=== PATIENT | female | born 1960 | race American Indian/Alaskan Native ===

== ENCOUNTER 2018-10-03 15:11 | Inpatient (IN) | payer MEDICAID, OTHER ==
[2018-10-03] MEDS ORDERED: PROVENTIL IH ONE (15:46)
[2018-10-03] MEDS ORDERED: ATROVENT IH ONE (15:46)
[2018-10-03] MEDS ORDERED: FIORICET PO ONE (15:48)
--- NOTE | 2018-10-03 15:52 | Emergency Department Report ---
HPI - General Chief Complaint: Dyspnea/Respdistress Time Seen by Provider: 10/03/18 15:37 - HPI HPI: Room 20 The patient is a 58-year-old female presents with a chief complaint of shortness breath and cough. The patient states for the past 4 days she has had a cough productive of yellow sputum and shortness of breath. Patient denies fever or rhinorrhea. Patient states she has also had one of her frequent migraine headaches Location: Lungs, see above Duration: 4 days Quality: Shortness of breath Severity: Moderate Modifying factors: [see above] Context: [see above] Mode of transportation: [not driving] ED Past Medical Hx - Past Medical History Previous Medical History?: Yes Hx Hypertension: Yes Hx Diabetes: Yes Hx Headaches / Migraines: Yes Hx COPD: Yes Additional medical history: anxiety, - Surgical History Past Surgical History?: Yes Additional Surgical History: partial hysterectomy - Family History Family history: no significant - Social History Smoking Status: Current Every Day Smoker (1/2 pack per day) Substance Use Type: None (denies illicit drug use) - Medications Home Medications: Home Medications Medication Instructions Recorded Confirmed Last Taken Type ALPRAZolam [ALPRAZolam Intensol] 1 mg PO QHS #20 ml 10/27/13 Unknown Rx Metformin HCl [Metformin HCl ER] 500 mg PO BID #60 tab.er.24 10/27/13 Unknown Rx traMADol [Ultram 50 MG tab] 50 mg PO Q4HR PRN #20 tablet 10/27/13 Unknown Rx ED Review of Systems ROS: Stated complaint: SOB/COUGH Other details as noted in HPI Constitutional: denies: fever Eyes: denies: eye pain ENT: denies: throat pain Respiratory: cough, shortness of breath Cardiovascular: denies: chest pain Endocrine: no symptoms reported Gastrointestinal: denies: abdominal pain Genitourinary: denies: dysuria Musculoskeletal: denies: back pain Neurological: headache Physical Exam - Physical Exam Vital Signs: Vital Signs 10/03/18 15:18 Temperature 97.5 F L Pulse Rate 66 Respiratory 16 Rate Blood Pressure 99/50 O2 Sat by Pulse 100 Oximetry Physical Exam: GENERAL: The patient is well-developed well-nourished female sitting on stretcher not appearing to be in acute distress. [] HEENT: Normocephalic. Atraumatic. Extraocular motions are intact. Patient has moist mucous membranes. NECK: Supple. Trachea midline CHEST/LUNGS: Occasional faint end expiratory wheeze. There is no respiratory distress noted. HEART/CARDIOVASCULAR: Regular. There is no tachycardia. There is no gallop rub or murmur. ABDOMEN: Abdomen is soft, nontender. Patient has normal bowel sounds. There is no abdominal distention. SKIN: There is no rash. There is no edema. There is no diaphoresis. NEURO: The patient is awake, alert, and oriented. The patient is cooperative. The patient has normal speech MUSCULOSKELETAL: There is no evidence of acute injury. ED Course Vital Signs 10/03/18 15:18 Temperature 97.5 F L Pulse Rate 66 Respiratory 16 Rate Blood Pressure 99/50 O2 Sat by Pulse 100 Oximetry - Reevaluation(s) Reevaluation #1: 10/03/18 19:20 Patient's systolic decreases to the 80s upon standing. Will admit the patient to the hospital for further hydration ED Medical Decision Making - Lab Data Result diagrams: 10/03/18 15:41 10/03/18 15:41 Laboratory Tests 10/03/18 10/03/18 10/03/18 15:41 15:41 15:52 WBC 9.8 RBC 4.61 Hgb 14.5 H Hct 42.4 MCV 92 MCH 31 MCHC 34 RDW 14.4 Plt Count 346 Lymph % (Auto) 26.2 [place] % (Auto) 5.0 Eos % (Auto) 1.2 Baso % (Auto) [place] Lymph # 2.6 [place] # 0.5 Eos # 0.1 Baso # 0.1 Seg Neutrophils % 66.5 Seg Neutrophils # 6.5 Sodium 137 Potassium 4.2 Chloride 98.1 Carbon Dioxide 26 Anion Gap 17 BUN 11 Creatinine 0.7 Estimated GFR > 60 BUN/Creatinine Ratio 16 Glucose 230 H Lactic Acid Calcium 9.8 Troponin T < 0.010 NT-Pro-B Natriuret Pep 8.94 10/03/18 15:52 WBC RBC Hgb Hct MCV MCH MCHC RDW Plt Count Lymph % (Auto) [place] % (Auto) Eos % (Auto) Baso % (Auto) Lymph # [place] # Eos # Baso # Seg Neutrophils % Seg Neutrophils # Sodium Potassium Chloride Carbon Dioxide Anion Gap BUN Creatinine Estimated GFR BUN/Creatinine Ratio Glucose Lactic Acid 2.00 Calcium Troponin T NT-Pro-B Natriuret Pep - Radiology Data Radiology results: report reviewed (chest x-ray), image reviewed (chest x-ray) interpreted by me: Chest x-ray-left lower lobe atelectasis. No pneumothorax [facility] [address] [place] [address] XRay Report Signed Patient: SOLA JAVED MR#: [id number] : 1960 Acct:[id number] Age/Sex: 58 / F ADM Date: 10/03/18 Loc: ED Attending Dr: Ordering Physician: LINA SMITH MD Date of Service: 10/03/18 Procedure(s): XR chest 1V ap Accession Number(s): [id number] cc: LINA SMITH MD Fluoro Time In Minutes: PROCEDURE: XR CHEST 1V AP TECHNIQUE: Chest radiograph single view. HISTORY: Dyspnea COMPARISONS: None . FINDINGS: Heart: Normal. Mediastinum/Vessels: Normal. Lungs/Pleural space: Mild scarring at the left base Bony thorax: No acute osseous abnormality. Life support devices: None. IMPRESSION: No acute cardiopulmonary abnormality. This document is electronically signed by Stephen Marks MD., October 03 2018 04:32:11 PM ET Transcribed By: KARIN Dictated By: TONIE MARKS MD Electronically Authenticated By: TONIE MARKS MD Signed Date/Time: 10/03/18 1633 DD/ 1521 TD/TT: 10/03/18 1600 - Differential Diagnosis COPD exacerbation, bronchitis, pneumonia Critical care attestation.: If time is entered above; I have spent that time in minutes in the direct care of this critically ill patient, excluding procedure time. ED Disposition Clinical Impression: COPD exacerbation, Orthostatic hypotension Disposition: OP ADMIT IP TO THIS HOSP Is pt being admited?: Yes Does the pt Need Aspirin: No Condition: Fair Instructions: Chronic Obstructive Pulmonary Disease (ED) Referrals: [facility] MD SUNDAY [Primary Care Provider] - 3-5 Days Time of Disposition: 19:21 (Hospitalist paged (Dr Sharp))
[2018-10-03 16:07] LABS: Basophils # (Auto) 0.1 K/mm3 (0.0-0.1); Eosinophils # (Auto) 0.1 K/mm3 (0.0-0.4); Eosinophils % (Auto) 1.2 % (0.0-4.3); Hemoglobin 14.5 gm/dl (10.1-14.3); Lymphocytes # (Auto) 2.6 K/mm3 (1.2-5.4); Lymphocytes % (Auto) 26.2 % (13.4-35.0); Monocytes # (Auto) 0.5 K/mm3 (0.0-0.8)
[2018-10-03 16:11] LABS: Hematocrit 42.4 % (30.3-42.9); Mean Corpuscular HGB Conc 34 % (30-34); Mean Corpuscular Volume 92 fl (79-97); Platelet Count 346 K/mm3 (140-440); Red Blood Count 4.61 M/mm3 (3.65-5.03); Red Cell Distribution Width 14.4 % (13.2-15.2)
[2018-10-03 16:20] LABS: BUN/Creatinine Ratio 16; Blood Urea Nitrogen 11 mg/dL (7-17); Calcium 9.8 mg/dL (8.4-10.2); Hemolysis Index 3
[2018-10-03] MEDS ORDERED: NACL 0.9% 1000 ML 1,000 ML IV ONE ×2 (16:21→19:58)
--- NOTE | 2018-10-03 16:33 | XRay Report ---
PROCEDURE: XR CHEST 1V AP TECHNIQUE: Chest radiograph single view. HISTORY: Dyspnea COMPARISONS: None . FINDINGS: Heart: Normal. Mediastinum/Vessels: Normal. Lungs/Pleural space: Mild scarring at the left base Bony thorax: No acute osseous abnormality. Life support devices: None. IMPRESSION: No acute cardiopulmonary abnormality. This document is electronically signed by Stephen Fenton MD., October 03 2018 04:32:11 PM ET
[2018-10-03] MEDS ORDERED: VISTARIL PO ONE (17:55)
[2018-10-03] MEDS ORDERED: ROCEPHIN/NS 1 GM/50 ML 1 GM/50 ML BAG IV ONE (19:21)
--- NOTE | 2018-10-03 19:25 | History and Physical Report ---
History of Present Illness Chief complaint: I cant breathe History of present illness: 58 YO Female with COPD, Nicotine Dependence, HTN, DM, Migraine ELLISON, Anxiety presents to ED for evaluation. Pt states that she has experienced shortness of breath over the past 4 days with persistent symptoms over the same time frame. Pt acknowledges increased frequency of productive cough with yellow sputum. Pt acknowledges increased use of bronchodilator therapy without relief. Pt also acknowledges bitter taste in her mouth upon wakin juana the past week. Pt transported to [facility] ED via private vehicle. Pt seen and evaluated in ED and found to have COPD Exacerbation complicated by Acute Hypoxemic Respiratory Failure as well as GERD. Pt admitted to medical floor. Pt denies fever, chills, CP, Palpitations, NVD, Trauma, prolonged travel/immobility, unilateral leg swelling, calf pain, individual/family history of DVT/PE or bleeding/blood clotting disorders, hemoptysis, skin rash, or recent ill contacts. Past History Past Medical History: COPD, diabetes, hypertension, migraines Past Surgical History: No surgical history, Other (reviewed) Social history: single, smoking Family history: diabetes, hypertension Medications and Allergies Allergies Allergy/AdvReac Type Severity Reaction Status Date / Time No Known Allergies Allergy Verified 10/03/18 15:20 Home Medications Medication Instructions Recorded Confirmed Last Taken Type ALPRAZolam [ALPRAZolam Intensol] 1 mg PO QHS #20 ml 10/27/13 Unknown Rx Metformin HCl [Metformin HCl ER] 500 mg PO BID #60 tab.er.24 10/27/13 Unknown Rx traMADol [Ultram 50 MG tab] 50 mg PO Q4HR PRN #20 tablet 10/27/13 Unknown Rx Active Meds: Active Medications Ceftriaxone Sodium (Rocephin/Ns 1 Gm/50 Ml) 1 gm in 50 mls @ 100 mls/hr IV ONCE ONE; Protocol Stop: 10/03/18 19:50 Review of Systems Constitutional: no weight loss, no weight gain, no fever, no chills Ears, nose, mouth and throat: no ear pain, no ear discharge, no tinnitis, no decreased hearing Breasts: no change in shape, no swelling, no mass Cardiovascular: no chest pain, no orthopnea, no palpitations, no rapid/irregular heart beat, no edema Respiratory: cough, cough with sputum, excessive sputum, shortness of breath Gastrointestinal: no nausea, no vomiting, no diarrhea, no constipation Genitourinary Female: no pelvic pain, no flank pain, no menorrhagia, no dysuria, no urinary frequency, no urgency, no stress incontinence Rectal: no pain, no incontinence, no bleeding Musculoskeletal: no neck stiffness, no neck pain, no shooting arm pain, no low back pain, no shooting leg pain Integumentary: no rash, no pruritis, no redness, no sores Neurological: no transient paralysis, no paralysis, no weakness, no parathesias, no numbness, no tingling, no seizures Psychiatric: no anxiety, no memory loss, no change in sleep habits, no sleep disturbances, no insomnia, no hypersomnia, no change in appetite, no suicidal ideation Endocrine: no cold intolerance, no heat intolerance, no polyphagia, no excessive thirst, no polydipsia, no polyuria, no nocturia Hematologic/Lymphatic: no easy bruising, no easy bleeding, no lymphadenopathy, no lymphedema Allergic/Immunologic: no urticaria, no allergic rhinitis, no wheezing, no persistent infections, no anaphylaxis, no angioedema Exam - Constitutional Vitals: Temp Pulse Resp BP Pulse Ox 98.0 F 89 20 99/60 99 10/03/18 17:58 10/03/18 19:00 10/03/18 19:00 10/03/18 19:00 10/03/18 19:00 General appearance: Present: mild distress - EENT Eyes: Present: PERRL ENT: hearing intact, clear oral mucosa - Neck Neck: Present: supple, normal ROM - Respiratory Respiratory effort: labored Respiratory: bilateral: diminished, rhonchi - Cardiovascular Heart Sounds: Present: S1 & S2. Absent: rub, click - Extremities Extremities: pulses symmetrical, No edema Peripheral Pulses: within normal limits - Abdominal General gastrointestinal: Present: soft, non-tender, non-distended, normal bowel sounds Female genitourinary: Present: normal - Integumentary Integumentary: Present: clear, warm, dry - Musculoskeletal Musculoskeletal: gait normal, strength equal bilaterally - Psychiatric Psychiatric: appropriate mood/affect, intact judgment & insight, agitated - Neurologic Neurologic: CNII-XII intact, moves all extremities Results - Labs CBC & Chem 7: 10/03/18 15:41 10/03/18 15:41 Labs: Abnormal lab results 10/03/18 10/03/18 Range/Units 15:41 15:41 Hgb 14.5 H (10.1-14.3) gm/dl Glucose 230 H (65-100) mg/dL Assessment and Plan - Patient Problems (1) Respiratory failure Current Visit: Yes Status: Acute Qualifiers: Chronicity: acute on chronic Respiratory failure complication: hypoxia Qualified Code(s): J96.21 - Acute and chronic respiratory failure with hypoxia Plan to address problem: Admit to medical floor, CTA chest, chest x ray, supplemental oxygen, nebulizer, pulse oximetry, (2) COPD exacerbation Current Visit: Yes Status: Acute Plan to address problem: IV steroid therpay, IV antibiotic therapy, supplemental oxygen, NIPPV as clinically indicated. (3) Anxiety Current Visit: No Status: Acute Plan to address problem: Continue xanax, supportive care. (4) Diabetes Current Visit: No Status: Acute Plan to address problem: ADA diet, insulin, accu check (5) Nicotine dependence unspecified, with withdrawal Current Visit: Yes Status: Acute Qualifiers: Nicotine product type: cigarettes Qualified Code(s): F17.213 - Nicotine dependence, cigarettes, with withdrawal Plan to address problem: Smoking cessation counseling, supportive care. (6) DVT prophylaxis Current Visit: Yes Status: Acute Plan to address problem: SCD to BLE while in bed, prophylacitc lovenox
[2018-10-03] MEDS ORDERED: SODIUM CHLORIDE FLUSH SYRINGE 10 ML IV PRN (19:43)
[2018-10-03] MEDS ORDERED: TYLENOL PO PRN (19:43)
[2018-10-03] MEDS ORDERED: ZOFRAN IV PRN (19:43)
[2018-10-03] MEDS ORDERED: ULTRAM PO PRN (19:45)
[2018-10-03] MEDS ORDERED: D50W (25GM) Syringe IV PRN (19:46)
[2018-10-03] MEDS ORDERED: NACL 0.9% 1000 ML 1,000 ML ONE (20:00)
[2018-10-03] MEDS: HumaLOG SUB-Q SCH (22:57)
[2018-10-03] MEDS: PERCOCET 5/325 PO PRN (22:57)
[2018-10-03] MEDS: LOVENOX SUB-Q SCH (22:59)
[2018-10-03] MEDS: SODIUM CHLORIDE FLUSH SYRINGE 10 ML IV SCH (23:00)
[2018-10-03] MEDS: XANAX PO SCH (23:01)
[2018-10-04] MEDS: PROVENTIL IH PRN ×3 (06:07→21:44)
--- NOTE | 2018-10-04 08:27 | Progress Note ---
Assessment and Plan Assessment and plan: Acute hypoxemic respiratory failure. Follow-up CTA of the chest. Continue O2 and BiPAP as clinically indicated. Continue bronchodilators/nebulizer treatments. Acute COPD exacerbation. Continue IV steroids, O2, IV antibiotics, bronchodilators and nebulizer treatments and supportive care. Acute bronchitis. Continue IV antibiotics. Diabetes mellitus type 2. ADA diet, insulin, accu check Tobacco abuse. Patient has been counseled on smoking cessation. Anxiety disorder. Continue Xanax. History Interval history: No new issues overnight. Hospitalist Physical - Constitutional Vitals: Temp Pulse Resp BP Pulse Ox 98.1 F 102 H 20 98/58 98 10/04/18 05:34 10/04/18 06:19 10/04/18 06:19 10/04/18 05:34 10/04/18 06:14 General appearance: Present: no acute distress - EENT Eyes: Present: PERRL, EOM intact ENT: hearing intact, clear oral mucosa, dentition normal - Neck Neck: Present: supple, normal ROM - Respiratory Respiratory effort: normal Respiratory: bilateral: CTA - Cardiovascular Rhythm: regular Heart Sounds: Present: S1 & S2. Absent: gallop, rub - Extremities Extremities: no ischemia, No edema, Full ROM - Abdominal General gastrointestinal: soft, non-tender, non-distended, normal bowel sounds - Integumentary Integumentary: Present: clear, warm, dry - Neurologic Neurologic: CNII-XII intact, moves all extremities Results - Labs CBC & Chem 7: 10/03/18 15:41 10/03/18 15:41 Labs: Laboratory Last Values WBC 9.8 K/mm3 (4.5-11.0) 10/03/18 15:41 RBC 4.61 M/mm3 (3.65-5.03) 10/03/18 15:41 Hgb 14.5 gm/dl (10.1-14.3) H 10/03/18 15:41 Hct 42.4 % (30.3-42.9) 10/03/18 15:41 MCV 92 fl (79-97) 10/03/18 15:41 MCH 31 pg (28-32) 10/03/18 15:41 MCHC 34 % (30-34) 10/03/18 15:41 RDW 14.4 % (13.2-15.2) 10/03/18 15:41 Plt Count 346 K/mm3 (140-440) 10/03/18 15:41 Lymph % (Auto) 26.2 % (13.4-35.0) 10/03/18 15:41 [place] % (Auto) 5.0 % (0.0-7.3) 10/03/18 15:41 Eos % (Auto) 1.2 % (0.0-4.3) 10/03/18 15:41 Baso % (Auto) Patient Sitter 10/03/18 15:41 Lymph # 2.6 K/mm3 (1.2-5.4) 10/03/18 15:41 [place] # 0.5 K/mm3 (0.0-0.8) 10/03/18 15:41 Eos # 0.1 K/mm3 (0.0-0.4) 10/03/18 15:41 Baso # 0.1 K/mm3 (0.0-0.1) 10/03/18 15:41 Seg Neutrophils % 66.5 % (40.0-70.0) 10/03/18 15:41 Seg Neutrophils # 6.5 K/mm3 (1.8-7.7) 10/03/18 15:41 Sodium 137 mmol/L (137-145) 10/03/18 15:41 Potassium 4.2 mmol/L (3.6-5.0) 10/03/18 15:41 Chloride 98.1 mmol/L (98-107) 10/03/18 15:41 Carbon Dioxide 26 mmol/L (22-30) 10/03/18 15:41 Anion Gap 17 mmol/L 10/03/18 15:41 BUN 11 mg/dL (7-17) 10/03/18 15:41 Creatinine 0.7 mg/dL (0.7-1.2) 10/03/18 15:41 Estimated GFR > 60 ml/min 10/03/18 15:41 BUN/Creatinine Ratio 16 % 10/03/18 15:41 Glucose 230 mg/dL (65-100) H 10/03/18 15:41 POC Glucose 160 (70-105) H 10/03/18 22:12 Lactic Acid 2.00 mmol/L (0.7-2.0) 10/03/18 15:52 Calcium 9.8 mg/dL (8.4-10.2) 10/03/18 15:41 Troponin T < 0.010 ng/mL (0.00-0.029) 10/03/18 15:41 NT-Pro-B Natriuret Pep 8.94 pg/mL (0-900) 10/03/18 15:52 Active Medications - Current Medications Current Medications: Generic Name Dose Route Start Last Admin Trade Name Freq PRN Reason Stop Dose Admin Acetaminophen 650 mg 10/03/18 19:43 Tylenol PO Q4H PRN Pain MILD(1-3)/Fever >100.5/ELLISON Albuterol 2.5 mg 10/03/18 19:43 10/04/18 06:07 Proventil IH 2.5 mg Q4H PRN Administration Shortness Of Breath Alprazolam 1 mg 10/03/18 22:00 10/03/18 23:01 Xanax PO 1 mg QHS ANNE Administration Dextrose 50 ml 10/03/18 19:46 D50w (25gm) Syringe IV PRN PRN Hypoglycemia Enoxaparin Sodium 40 mg 10/03/18 22:00 10/03/18 22:59 Lovenox SUB-Q 40 mg QDAY@2200 ANNE Administration Insulin Human Lispro 0 unit 10/03/18 22:00 10/03/18 22:57 Humalog SUB-Q 2 unit ACHS ANNE Administration Protocol Ondansetron HCl 4 mg 10/03/18 19:43 Zofran IV Q8H PRN Nausea And Vomiting Oxycodone/Acetaminophen 1 tab 10/03/18 19:43 10/03/18 22:57 Percocet 5/325 PO 1 tab Q6H PRN Administration Pain, Moderate (4-6) Sodium Chloride 10 ml 10/03/18 22:00 10/03/18 23:00 Sodium Chloride Flush Syringe 10 Ml IV 10 ml BID ANNE Administration Sodium Chloride 10 ml 10/03/18 19:43 Sodium Chloride Flush Syringe 10 Ml IV PRN PRN LINE FLUSH Tramadol HCl 50 mg 10/03/18 19:45 Ultram PO Q4H PRN Pain, Moderate
[2018-10-04] MEDS: HumaLOG SUB-Q SCH ×4 (08:41→22:55)
[2018-10-04] MEDS: SODIUM CHLORIDE FLUSH SYRINGE 10 ML IV SCH ×2 (10:40→21:34)
--- NOTE | 2018-10-04 11:12 | Cat Scan Report ---
PROCEDURE: CT ANGIO CHEST TECHNIQUE: Computerized tomographic angiography of the chest was performed after the IV injection of iodinated nonionic contrast including image processing. The image data was postprocessed using 2-di mensional multiplanar reformatted (MPR) and 3-dimensional (MIP and/or volume rendered) techniques. Au tomated exposure control, adjustment of mA and/or kV according to patient size, or iterative reconstr uction dose optimization techniques were utilized. CT DOSE LENGTH PRODUCT: 396.5 mGycm HISTORY: dypsnea COMPARISONS: None . FINDINGS: Contrast-enhanced CT angiography of the chest was performed following intravenous administr ation of iodinated contrast. These images demonstrate no CT evidence of pulmonary thromboembolic disease. There is no aortic disse ction. There are small mediastinal lymph nodes, some which are calcified. There is COPD. There is a right upper lobe calcified granuloma. There is linear consolidation in the lingula, likely atelectasis, but pneumonia is not excluded. There is no pleural or pericardial effusion. In the upper abdomen, the adrenal glands are within normal limits. The liver appears large. It is not included in its entirety on the examination. IMPRESSION: No CT evidence of pulmonary thromboembolic disease Lingular consolidation, likely atelectasis, but pneumonia is not excluded COPD This document is electronically signed by Lowell Amin MD., October 04 2018 11:10:05 AM ET
[2018-10-04] MEDS: PERCOCET 5/325 PO PRN ×2 (13:04→19:41)
[2018-10-04] MEDS ORDERED: LEVAQUIN 750MG/150ML 750 MG/150 ML BAG IV ONE (17:00)
[2018-10-04] MEDS: XANAX PO SCH (21:33)
[2018-10-04] MEDS: SOLU-Medrol IV SCH (21:33)
[2018-10-04] MEDS: LOVENOX SUB-Q SCH (21:34)
[2018-10-05] MEDS: PERCOCET 5/325 PO PRN ×3 (05:25→22:22)
[2018-10-05] MEDS: PROVENTIL IH PRN (05:50)
[2018-10-05 06:04] LABS: Basophils % (Auto) 0.4 % (0.0-1.8); Eosinophils % (Auto) 0.1 % (0.0-4.3); Hematocrit 38.4 % (30.3-42.9); Lymphocytes # (Auto) 1.3 K/mm3 (1.2-5.4); Lymphocytes % (Auto) 15.2 % (13.4-35.0); Mean Corpuscular HGB Conc 34 % (30-34); Mean Corpuscular Volume 93 fl (79-97); Monocytes # (Auto) 0.1 K/mm3 (0.0-0.8); Platelet Count 315 K/mm3 (140-440); Red Blood Count 4.13 M/mm3 (3.65-5.03); Red Cell Distribution Width 14.3 % (13.2-15.2)
[2018-10-05 06:28] LABS: BUN/Creatinine Ratio 13; Blood Urea Nitrogen 8 mg/dL (7-17); Hemolysis Index 4
[2018-10-05] MEDS: HumaLOG SUB-Q SCH ×4 (08:58→22:19)
--- NOTE | 2018-10-05 10:10 | Progress Note ---
Assessment and Plan Assessment and plan: Acute hypoxemic respiratory failure. CTA of the chest is negative for PE. Continue O2 and BiPAP as clinically indicated. Continue bronchodilators/nebulizer treatments. Acute COPD exacerbation. Continue IV steroids, O2, IV antibiotics, bronchodilators and nebulizer treatments and supportive care. Lingula pneumonia/Acute bronchitis. Continue IV antibiotics. Diabetes mellitus type 2, uncontrolled. ADA diet, insulin, accu check. Add Lantus at bedtime Tobacco abuse. Patient has been counseled on smoking cessation. Anxiety disorder. Continue Xanax. History Interval history: No new issues overnight. Hospitalist Physical - Constitutional Vitals: Temp Pulse Resp BP Pulse Ox 98.3 F 99 H 18 101/68 97 10/05/18 05:12 10/05/18 06:17 10/05/18 06:17 10/05/18 05:12 10/05/18 05:53 General appearance: Present: no acute distress - EENT Eyes: Present: PERRL, EOM intact ENT: hearing intact, clear oral mucosa, dentition normal - Neck Neck: Present: supple, normal ROM - Respiratory Respiratory effort: normal Respiratory: bilateral: CTA - Cardiovascular Rhythm: regular Heart Sounds: Present: S1 & S2. Absent: gallop, rub - Extremities Extremities: no ischemia, No edema, Full ROM - Abdominal General gastrointestinal: soft, non-tender, non-distended, normal bowel sounds - Integumentary Integumentary: Present: clear, warm, dry - Neurologic Neurologic: CNII-XII intact, moves all extremities Results - Labs CBC & Chem 7: 10/05/18 05:17 10/05/18 05:17 Labs: Laboratory Last Values WBC 8.3 K/mm3 (4.5-11.0) 10/05/18 05:17 RBC 4.13 M/mm3 (3.65-5.03) 10/05/18 05:17 Hgb 13.0 gm/dl (10.1-14.3) 10/05/18 05:17 Hct 38.4 % (30.3-42.9) 10/05/18 05:17 MCV 93 fl (79-97) 10/05/18 05:17 MCH 31 pg (28-32) 10/05/18 05:17 MCHC 34 % (30-34) 10/05/18 05:17 RDW 14.3 % (13.2-15.2) 10/05/18 05:17 Plt Count 315 K/mm3 (140-440) 10/05/18 05:17 Lymph % (Auto) 15.2 % (13.4-35.0) 10/05/18 05:17 [place] % (Auto) 1.0 % (0.0-7.3) 10/05/18 05:17 Eos % (Auto) 0.1 % (0.0-4.3) 10/05/18 05:17 Baso % (Auto) 0.4 % (0.0-1.8) 10/05/18 05:17 Lymph # 1.3 K/mm3 (1.2-5.4) 10/05/18 05:17 [place] # 0.1 K/mm3 (0.0-0.8) 10/05/18 05:17 Eos # 0.0 K/mm3 (0.0-0.4) 10/05/18 05:17 Baso # 0.0 K/mm3 (0.0-0.1) 10/05/18 05:17 Seg Neutrophils % 83.3 % (40.0-70.0) H 10/05/18 05:17 Seg Neutrophils # 6.9 K/mm3 (1.8-7.7) 10/05/18 05:17 Sodium 135 mmol/L (137-145) L 10/05/18 05:17 Potassium 4.6 mmol/L (3.6-5.0) 10/05/18 05:17 Chloride 98.5 mmol/L (98-107) 10/05/18 05:17 Carbon Dioxide 24 mmol/L (22-30) 10/05/18 05:17 Anion Gap 17 mmol/L 10/05/18 05:17 BUN 8 mg/dL (7-17) 10/05/18 05:17 Creatinine 0.6 mg/dL (0.7-1.2) L 10/05/18 05:17 Estimated GFR > 60 ml/min 10/05/18 05:17 BUN/Creatinine Ratio 13 % 10/05/18 05:17 Glucose 334 mg/dL (65-100) H 10/05/18 05:17 POC Glucose 255 (70-105) H 10/05/18 08:41 Lactic Acid 2.00 mmol/L (0.7-2.0) 10/03/18 15:52 Calcium 9.0 mg/dL (8.4-10.2) 10/05/18 05:17 Troponin T < 0.010 ng/mL (0.00-0.029) 10/03/18 15:41 NT-Pro-B Natriuret Pep 8.94 pg/mL (0-900) 10/03/18 15:52 Active Medications - Current Medications Current Medications: Generic Name Dose Route Start Last Admin Trade Name Freq PRN Reason Stop Dose Admin Acetaminophen 650 mg 10/03/18 19:43 Tylenol PO Q4H PRN Pain MILD(1-3)/Fever >100.5/ELLISON Albuterol 2.5 mg 10/03/18 19:43 10/05/18 05:50 Proventil IH 2.5 mg Q4H PRN Administration Shortness Of Breath Alprazolam 1 mg 10/03/18 22:00 10/04/18 21:33 Xanax PO 1 mg QHS ANNE Administration Dextrose 50 ml 10/03/18 19:46 D50w (25gm) Syringe IV PRN PRN Hypoglycemia Enoxaparin Sodium 40 mg 10/03/18 22:00 10/04/18 21:34 Lovenox SUB-Q 40 mg QDAY@2200 ANNE Administration Insulin Human Lispro 0 unit 10/03/18 22:00 10/05/18 08:58 Humalog SUB-Q 4 unit ACHS ANNE Administration Protocol Methylprednisolone Sodium Succinate 40 mg 10/04/18 22:00 10/04/18 21:33 Solu-Medrol IV 40 mg Q12HR ANNE Administration Ondansetron HCl 4 mg 10/03/18 19:43 Zofran IV Q8H PRN Nausea And Vomiting Oxycodone/Acetaminophen 1 tab 10/03/18 19:43 10/05/18 05:25 Percocet 5/325 PO 1 tab Q6H PRN Administration Pain, Moderate (4-6) Sodium Chloride 10 ml 10/03/18 22:00 10/04/18 21:34 Sodium Chloride Flush Syringe 10 Ml IV 10 ml BID ANNE Administration Sodium Chloride 10 ml 10/03/18 19:43 Sodium Chloride Flush Syringe 10 Ml IV PRN PRN LINE FLUSH Tramadol HCl 50 mg 10/03/18 19:45 Ultram PO Q4H PRN Pain, Moderate
[2018-10-05] MEDS: SODIUM CHLORIDE FLUSH SYRINGE 10 ML IV SCH ×2 (10:38→22:22)
[2018-10-05] MEDS: SOLU-Medrol IV SCH ×2 (10:38→22:21)
[2018-10-05] MEDS: LEVAQUIN 750MG/150ML 750 MG/150 ML BAG IV SCH (17:06)
[2018-10-05] MEDS ORDERED: LANTUS SUB-Q SCH (22:00)
[2018-10-05] MEDS: LOVENOX SUB-Q SCH (22:21)
[2018-10-05] MEDS: XANAX PO SCH (22:22)
[2018-10-06] MEDS: HumaLOG SUB-Q SCH ×2 (08:30→12:30)
--- NOTE | 2018-10-06 09:41 | Discharge Summary ---
Providers - Providers Date of Admission: 10/03/18 19:43 Attending physician: TOMMY FERRELL MD [facility] Reason for admission: COPD exacerbation Condition: Fair Pertinent studies: CTA; negative for PE Hospital course: Patient was admitted for acute on chronic hypoxic respiratory failure secondary to COPD exacerbation and was treated appropriately for COPD exacerbation according to COPD protocol and patient showed improvement and discharged home with appropriate medications. CTA chest was negative for PE. Patient uses 2 L of oxygen at home and was at baseline at the time of discharge. Patient's Complaining migraine was given Fioricet. Patient was hemodynamically stable at the time of discharge. Disposition: DC-01 TO HOME OR SELFCARE Time spent for discharge: 32 minutes - Discharge Diagnoses (1) COPD exacerbation Status: Acute (2) Nicotine dependence unspecified, with withdrawal Status: Acute Qualifiers: Nicotine product type: cigarettes Qualified Code(s): F17.213 - Nicotine dependence, cigarettes, with withdrawal (3) Respiratory failure Status: Acute Qualifiers: Chronicity: acute on chronic Respiratory failure complication: hypoxia Qualified Code(s): J96.21 - Acute and chronic respiratory failure with hypoxia (4) Migraine aura without headache Status: Acute Core Measure Documentation - Palliative Care Palliative Care/ Comfort Measures: Not Applicable - Core Measures Any of the following diagnoses?: none Exam - Physical Exam Narrative exam: Not in cardiopulmonary distress. The patient appeared well nourished and normally developed. Vital signs as documented. Head exam is unremarkable. No scleral icterus . Neck is without jugular venous distension, thyromegaly, or carotid bruits. Lungs are clear to auscultation. Cardiac exam reveals regular rate and Rhythm. First and second heart sounds normal. No murmurs, rubs or gallops. Abdominal exam reveals normal bowel sounds, no masses, no organomegaly and no aortic enlargement. Extremities are nonedematous and both femoral and pedal pulses are normal. CONFIGURATOR: Alert and oriented 3. No focal weakness. - Constitutional Vitals: Temp Pulse Resp BP Pulse Ox 98.2 F 101 H 24 112/72 90 10/06/18 04:26 10/06/18 04:26 10/06/18 04:26 10/06/18 04:26 10/06/18 04:26 Plan Activity: no restrictions Weight Bearing Status: Full Weight Bearing Diet: diabetic Durable Medical Equipment Needed Upon Discharge: Oxygen (patient uses home oxygen 3 L/m) Follow up with: MANISHA TIAN MD [Primary Care Provider] - 3-5 Days Prescriptions: Butalb/Acetamin/Caff 50-325-40 [Fioricet] 1 tab PO Q6HR PRN #12 tab PRN Reason: Headache levoFLOXacin [Levaquin TAB] 500 mg PO QDAY #5 tablet Prednisone [predniSONE 10 mg (6-Day Pack, 21 Tabs)] 10 mg PO .TAPER #1 tab.ds.pk
[2018-10-06] MEDS: SOLU-Medrol IV SCH (10:34)
[2018-10-06] MEDS: LEVAQUIN 750MG/150ML 750 MG/150 ML BAG IV SCH (10:35)
[2018-10-06] MEDS: PERCOCET 5/325 PO PRN (10:36)
[2018-10-06] MEDS: SODIUM CHLORIDE FLUSH SYRINGE 10 ML IV SCH (10:37)
[2018-10-06 11:45] VITALS: BP 113/72
== END 2018-10-06 14:10 | disposition home or self-care (01) | DRG 189 ==
LOC: ED 15:11 → 3A 19:43
PROVIDERS: ADMIT Internal Medicine; ATTEND Internal Medicine
DX: J96.21 Acute and chronic respiratory failure with hypoxia (principal); J44.1 Chronic obstructive pulmonary disease with (acute) exacerbation; J18.9 Pneumonia, unspecified organism; J20.9 Acute bronchitis, unspecified; G43.909 Migraine, unspecified, not intractable, without status migrainosus; F17.213 Nicotine dependence, cigarettes, with withdrawal; J44.0 Chronic obstructive pulmonary disease with (acute) lower respiratory infection; E11.9 Type 2 diabetes mellitus without complications; F41.9 Anxiety disorder, unspecified; I10 Essential (primary) hypertension; K21.9 Gastro-esophageal reflux disease without esophagitis; I95.1 Orthostatic hypotension; Z83.3 Family history of diabetes mellitus; Z82.49 Family history of ischemic heart disease and other diseases of the circulatory system; Z79.899 Other long term (current) drug therapy; Z90.711 Acquired absence of uterus with remaining cervical stump; Z71.6 Tobacco abuse counseling
CPT/HCPCS: 36415; 71045; 71275; 80048; 82140; 82962; 83880; 84484; 85025; 87040; 93010; 94640; 94760; 99406; G0378; J0696; J1650; J1815; J1956; J2405; J2920; J7030; Q0177; Q9967